=== PATIENT | male | born 1960 | race Caucasian/White ===

== ENCOUNTER → 2016-12-13 13:37 | Outpatient (CLI) | payer OTHER | END | disposition home or self-care (01) | LOC: D.MRI 13:37 | DX: M54.16 Radiculopathy, lumbar region (principal) ==

== ENCOUNTER 2017-02-10 14:11 | Emergency (ER) | payer OTHER ==
[2017-02-10 14:32] LABS: APPEARANCE CLEAR (CLEAR); BILIRUBIN NEGATIVE (NEGATIVE); COLOR YELLOW (YELLOW); GLUCOSE NEGATIVE (NEGATIVE); KETONE NEGATIVE (NEGATIVE); NITRITE NEGATIVE (NEGATIVE); PROTEIN NEGATIVE (NEGATIVE); UROBILINOGEN NORMAL (NORMAL)
== END 2017-02-10 15:41 | disposition home or self-care (01) ==
LOC: D.ER 14:11
PROVIDERS: Emergency Medicine
DX: N32.81 Overactive bladder (principal); N40.0 Benign prostatic hyperplasia without lower urinary tract symptoms; I10 Essential (primary) hypertension

== ENCOUNTER 2017-02-15 23:36 | Emergency (ER) | payer OTHER ==
[2017-02-16 00:23] LABS: APPEARANCE HAZY (CLEAR); BILIRUBIN NEGATIVE (NEGATIVE); COLOR YELLOW (YELLOW); GLUCOSE NEGATIVE (NEGATIVE); KETONE NEGATIVE (NEGATIVE); NITRITE NEGATIVE (NEGATIVE); PROTEIN NEGATIVE (NEGATIVE); SPECIFIC GRAVITY 1.015 (1.005-1.020); UROBILINOGEN NORMAL (NORMAL)
== END 2017-02-16 02:02 | disposition home or self-care (01) ==
LOC: D.ER 23:36
PROVIDERS: Emergency Medicine
DX: N41.9 Inflammatory disease of prostate, unspecified (principal); N39.0 Urinary tract infection, site not specified; F17.200 Nicotine dependence, unspecified, uncomplicated

== ENCOUNTER 2018-02-11 11:54 | Emergency (ER) | payer OTHER ==
[~2018-02-11] VITALS: Ht 172.7 cm; Wt 106.8 kg
[2018-02-11 11:56] VITALS: BP 157/107; Ht 172.7 cm; Wt 106.8 kg
[2018-02-11] MEDS ORDERED: COZAAR25 MG PO (11:57)
[2018-02-11 12:26] LABS: BASOPHILS 0.2 % (0-2); EOSINOPHILS 1.3 % (0-7); HEMATOCRIT 51.7 % (42.0-54.0); IMMATURE GRANULOCYTES 0.3 % (0-5); LYMPHOCYTES 20.4 % (15-50); MCH 30.7 pg (26.0-34.0); MCHC 34.8 g/dL (31.0-37.0); MCV 88.2 fL (80.0-100.0); MEAN PLATELET VOLUME 10.8 fL (7.4-10.4); MONOCYTES 9.3 % (2-11); NEUTROPHILS 68.5 % (40-80); PLATELET COUNT 249 10x3/uL (130-400); RBC 5.86 10x6/uL (4.20-6.10); RDW 15.2 % (11.5-14.5); WBC 15.8 10x3/uL (4.8-10.8)
[2018-02-11 12:36] LABS: APPEARANCE CLEAR (CLEAR); COLOR YELLOW (YELLOW)
[2018-02-11 12:37] LABS: BILIRUBIN NEGATIVE (NEGATIVE); GLUCOSE NEGATIVE (NEGATIVE); KETONE NEGATIVE (NEGATIVE); NITRITE NEGATIVE (NEGATIVE); PROTEIN NEGATIVE (NEGATIVE); UROBILINOGEN NORMAL (NORMAL)
[2018-02-11 12:44] LABS: ALBUMIN 3.6 g/dL (3.4-5.0); ANION GAP 12.3 mmol/L (8-16); BILIRUBIN - TOTAL 0.32 mg/dL (0.2-1.3); CALCIUM 8.9 mg/dL (8.5-10.1); CARBON DIOXIDE 26.4 mmol/L (21.0-32.0); CREATININE - SERUM 1.1 mg/dL (0.6-1.3); POTASSIUM - SERUM 4.7 mmol/L (3.5-5.1); PROTEIN - SERUM 7.3 g/dL (6.4-8.2)
[2018-02-11] MEDS ORDERED: PROTONIX40 MG PO (15:27)
[2018-02-11] MEDS ORDERED: LEVSIN/ANASP0.125 MG PO (15:27)
== END 2018-02-11 16:27 | disposition home or self-care (01) ==
LOC: D.ER 11:54
PROVIDERS: Family Medicine
DX: R10.9 Unspecified abdominal pain (principal); D72.829 Elevated white blood cell count, unspecified; R91.1 Solitary pulmonary nodule; I10 Essential (primary) hypertension

== ENCOUNTER 2018-02-23 12:18 | Emergency (ER) | payer OTHER ==
[~2018-02-23] VITALS: Ht 172.7 cm; Wt 98.2 kg
[~2018-02-23 12:18] MED LIST: COZAAR25 MG PO; LEVSIN/ANASP0.125 MG PO; PROTONIX40 MG PO
[2018-02-23 12:21] VITALS: Ht 172.7 cm; Wt 98.2 kg
[2018-02-23 12:51] LABS: APPEARANCE HAZY (CLEAR); BILIRUBIN NEGATIVE (NEGATIVE); COLOR YELLOW (YELLOW); GLUCOSE NEGATIVE (NEGATIVE); KETONE NEGATIVE (NEGATIVE); NITRITE NEGATIVE (NEGATIVE); PROTEIN 1+ mg/dL (NEGATIVE); UROBILINOGEN NORMAL (NORMAL)
[2018-02-23 12:53] LABS: BASOPHILS 0.2 % (0-2); EOSINOPHILS 1.2 % (0-7); HEMATOCRIT 52.1 % (42.0-54.0); HEMOGLOBIN 18.7 g/dL (13.5-17.5); IMMATURE GRANULOCYTES 0.4 % (0-5); LYMPHOCYTES 22.9 % (15-50); MCH 30.8 pg (26.0-34.0); MCHC 35.9 g/dL (31.0-37.0); MCV 85.7 fL (80.0-100.0); MEAN PLATELET VOLUME 11.1 fL (7.4-10.4); NEUTROPHILS 66.3 % (40-80); PLATELET COUNT 267 10x3/uL (130-400); RBC 6.08 10x6/uL (4.20-6.10); RDW 14.2 % (11.5-14.5); WBC 11.3 10x3/uL (4.8-10.8)
[2018-02-23 12:53] LABS: BACTERIA FEW /hpf (NONE SEEN); EPITHELIAL CELLS 0-5 /hpf (0-5); HYALINE CAST 0-5 /lpf (NONE SEEN); RED CELLS - URINE NONE SEEN /hpf (0-5); WHITE CELLS - URINE 0-5 /hpf (0-5)
[2018-02-23 14:22] LABS: ALBUMIN 3.6 g/dL (3.4-5.0); ANION GAP 14.9 mmol/L (8-16); BILIRUBIN - TOTAL 0.38 mg/dL (0.2-1.3); CALCIUM 8.7 mg/dL (8.5-10.1); CARBON DIOXIDE 24.9 mmol/L (21.0-32.0); CREATININE - SERUM 1.3 mg/dL (0.6-1.3); POTASSIUM - SERUM 3.8 mmol/L (3.5-5.1); PROTEIN - SERUM 7.2 g/dL (6.4-8.2)
[2018-02-23 17:14] VITALS: BP 153/81
== END 2018-02-23 17:16 | disposition home or self-care (01) ==
LOC: D.ER 12:18
PROVIDERS: Family Medicine
DX: R10.32 Left lower quadrant pain (principal); R14.0 Abdominal distension (gaseous); R19.7 Diarrhea, unspecified; I10 Essential (primary) hypertension

== ENCOUNTER 2018-02-25 12:42 | Observation (INO) | payer OTHER ==
[~2018-02-25] VITALS: Ht 172.7 cm; Wt 103.2 kg
--- NOTE | ~2018-02-25 | MORECARE ---
CASE MANAGEMENT DISCHARGE SUMMARY PATIENT: WADE DAVIDSON UNIT: [id number] ADM DATE: 03/02/18 AGE: 57 : 58 SEX: M ROOM/BED: D.1521 AUTHOR: JAVAN FONTANA PHYSICIAN: REFERRING PHYSICIAN: RENEA VILLAGRAN MD DATE OF SERVICE: 03/05/18 Discharge Plan Patient Name: WADE DAVIDSON Facility: [facility]:[place] : 1960 Planned Disposition: Home Anticipated Discharge Date: 03/04/18 Discharge Date: 03/04/2018 Expected LOS: 2 Initial Reviewer: [email or web address] Initial Review Date: 03/05/2018 Generated: 03/05/18 9:12 am Patient Name: WADE DAVIDSON Page [id number] at 0813 All edits/amendments must be made on the electronic document DICTATION DATE: 03/05/18811 CHISEL TRIMMER: ROYA 03/05/18811 RPT#: [id number] DC DATE:03/04/18 STATUS: DIS IN [facility] [address] [place] [address] END OF REPORT
--- NOTE | ~2018-02-25 | OP ---
PATIENT NAME: WADE DAVIDSON MEDICAL RECORD: [id number] :58 LOCATION:D.M2 D.2129 ADMISSION DATE:02/25/18 SURGEON: MOUNA YAÑEZ MD DATE OF OPERATION: 02/28/2018 PROCEDURE: Left heart catheterization, selective coronary angiography, right radial approach. CATHETERS: Radial sheath and Natoma catheter. The procedure was well tolerated. The patient was returned to the toscano. Sheath was removed. TR band was placed. FINDINGS: Left ventriculography in 30-degree ESTRADA view: Normal wall motion and normal systolic function. CORONARY ANATOMY: LEFT MAIN: Left main is free of disease. LAD: Free of disease in the diagonal system. CIRCUMFLEX: Free of disease in the marginal system. RIGHT CORONARY ARTERY: Dominant artery, gives rise to PDA, free of disease. IMPRESSION: Normal LV systolic function. Normal coronary anatomy. TRANSINT:[id number] Voice Confirmation ID: [id number] DOCUMENT ID: [id number] MOUNA YAÑEZ MD at 0802 CC: [id number] DICTATION DATE: 02/28/18 1503 AIR BRAKE OPERATOR: 02/28/18 1719 ADM IN [facility] [address] [place] [address]
--- NOTE | ~2018-02-25 | CN ---
PATIENT NAME:WADE DAVIDSON MEDICAL RECORD: [id number] : 58 LOCATION:D. D.2129 ADMIT DATE: 02/25/18 ACCOUNT: [id number] CONSULTING PHYSICIAN: MOUNA YAÑEZ MD REFERRING PHYSICIAN: RENEA VILLAGRAN MD DATE OF CONSULTATION: 02/28/2018 HISTORY OF PRESENT ILLNESS: A 57-year-old gentleman with a history of cardiac arrhythmias. These have been present for at least a year. He had a noninvasive workup to include echo and regular treadmill stress testing. This was normal at that time with poor exercise tolerance. He has had intermittent chest pain since that time. He had episode of chest pain accompanied by trigeminy. Post colonoscopy, we are asked to see him concerning his cardiovascular status. PAST MEDICAL HISTORY: Includes; 1. History of hypertension. 2. Cardiac arrhythmias, PVCs. 3. Gastroesophageal reflux disease. ALLERGIES: None known. MEDICATIONS: Include Protonix 40 every day, Wellbutrin 150 b.i.d., losartan 25 every day. SOCIAL HISTORY: Smokes a pack a day. Nondrinker. Does seem to exercise intermittently. REVIEW OF SYSTEMS: The patient reports easy bruising but reports no swollen glands. The patient reports no fever, no night sweats, no significant weight gain, no significant weight loss. No significant exercise tolerance. The patient reports no dry eyes, no irritation, no vision change. Patient reports no difficulty hearing and no ear pain. Patient reports no frequent nose bleeds or nose and sinus problems. Patient reports on arm pain on exertion. No shortness of breath while lying down. No history of heart murmur. Patient reports no cough, no wheezing or coughing up blood. Patient reports no abdominal pain, no vomiting. Normal appetite. No diarrhea and not vomiting blood. No nausea and no constipation. Patient reports no incontinence. No difficulty urinating. No hematuria. No increased frequency. Patient reports no muscle aches. No weakness, no arthralgias, no back pain. No swelling of the extremities. Patient reports no abnormal mole, no jaundice, no rashes. Reports no loss of consciousness. No weakness and no numbness. No seizures, dizziness, or headaches. The patient reports no depression, no sleep disturbance, feeling safe in a relationship and no alcohol abuse. Patient reports on fatigue. Reports no runny nose or sinus pressure. No itching, no hives, and no frequent sneezing. PHYSICAL EXAMINATION: GENERAL: Pleasant gentleman, in no acute distress. VITAL SIGNS: Blood pressure 139/88, pulse 69 and regular. HEENT: Normocephalic, atraumatic. NECK: No JVD or bruit. HEART: Regular. Occasional extrasystole in irregular pattern. LUNGS: Good air excursion. ABDOMEN: Soft, nontender. EXTREMITIES: Pulses 2+ with no edema. CONSULT REPORT [id number] WADE DAVIDSON DIAGNOSTIC DATA: ECG, trigeminy and LVH. IMPRESSION: Continued chest pain despite negative workup. I feel diagnostic angiography and intervention at this time. The patient is to be scheduled for this afternoon. TRANSINT:[id number] Voice Confirmation ID: [id number] DOCUMENT ID: [id number] MOUNA YAÑEZ MD at 0802 CC: [id number] DICTATION DATE: 02/28/18823 MOBILE GAME ENGINEER: 02/28/18 0856 ADM IN [facility] [id number] [place] [address]
--- NOTE | ~2018-02-25 | HEMODYNAMI ---
PATIENT:WADE DAVIDSON MEDICAL RECORD: [id number] : 58 [facility] D.2129 [id number] ADMISSION DATE: 02/25/18 Generatedon:02/28/201815:04 Patient name: WADE DAVIDSON Patient #: [id number] SSN : : 1960 Date of study: 02/28/2018 Page: Of Hemodynamic Procedure Report Patient Data Patient Demographics Procedure consent was obtained First Name: WADE Gender: Male Last Name: LETY : 1960 Middle Initial: E Age: 57 year(s) Patient #: [id number] Race: Unknown Additional ID: [id number] Contact details [address]: [address] [place] [address] State: [place] City: [place] Zip code: [address] Past Medical History Allergies: No known allergies Admission Admission Data Admission Date: 02/25/2018 Admission Time: 12:42 Admit Source: Other Room #: D.2129 Lab Results Lab Result Date: 02/28/2018 Lab Result Time: 0:00 Biochemistry Name Units Result Min Max BUN mg/dl 8 --(*---)-- 7 18 Creatinine mg/dl 1.3 --(---*)-- 0.6 1.3 CBC Name Units Result Min Max Hemoglobin g/dl 14.8 --(-*--)-- 13.5 17.5 Procedure Procedure Types Cath Procedure Diagnostic Procedure LHC LHC w/Coronaries Sedation Charges Moderate Sedation up to 15 minutes Procedure Description Procedure Date Procedure Date: 02/28/2018 Procedure Start Time: 14:51 Procedure End Time: 15:01 Procedure Staff Name Function Rafi Franco MD Performing Physician Miri Kamara RT Monitor Herber Osorio RT Scrub Carline Gómez RN Nurse Kimberly Ram RN Nurse Anderson Foss RT Computer Numerical Control Programmer Procedure Data Cath Procedure Fluoroscopy Diagnostic fluoroscopy Total fluoroscopy Time: 3.5 time: 3.5 min min Diagnostic fluoroscopy Total fluoroscopy dose: 433 dose: 433 mGy mGy Contrast Material Contrast Material Type Amount (ml) Isovue 300 10 Entry Location Entry Primary Successful Side Size Upsize Upsize Entry Closure Villeda ccessful Closure Location (Fr) 1 (Fr) 2 (Fr) Remarks Device Remarks Radial Right 6 Fr Mechanical artery Short Compression Estimated blood loss: 5 ml Diagnostic catheters Device Type Used For End Catheter Placement DIAGNOSTIC [place] 110cm 5 Procedure Fr catheter ([id number]) Procedure Complications No complications Procedure Medications Medication Administration Route Dosage 0.9% NaCl I.V. 100 ml/hr Oxygen etCO2 Nasal cannula 2 l/min Lidocaine 2% added to field 20 Heparin Flush Bag added to field 2 bags (1000units/500ml NS) Radial Cocktail added to field 1 syringe (Verapomil 2mg/Nitro 400mcg/Heparin 1500units) Versed I.V. 2 mg Fentanyl I.V. 100 mcg Versed I.V. 2 mg Fentanyl I.V. 100 mcg Versed I.V. 1 mg Fentanyl I.V. 50 mcg Hemodynamics Rest HGB: 14.8 (g/dl) Heart Rate: 78 (bpm) Pressure Samples Time Site Value (mmHg) Purpose Heart Use Rate(bpm) 14:55 LV 95/26,48 Snapshot 95 Gradients Valve Time Site Site Mean SEP/DFP Peak To Heart Use 1 2 (mmHg) (sec/min) Peak Rate (mmHg) (bpm) Aortic 14:55 LV AO 62 Snapshots Pre Cath Intra NCS Post Cath Vital Signs Time Heart Resp SPO2 etCO2 NIBP (mmHg) Rhythm Pain Sedation Rate (ipm) (%) (mmHg) Status Level (bpm) 14:34:56 79 15 98 40 168/99(123) NSR 0 (11) 10(A) , No pain 14:39:12 76 17 98 37.6 147/89(118) NSR 0 (11) 10(A) , No pain 14:43:21 81 15 97 35.2 130/95(115) NSR 0 (11) 10(A) , No pain 14:47:33 63 13 95 37 131/87(106) NSR 0 (11) 10(A) , No pain 14:51:43 74 15 97 36.6 134/99(114) NSR 0 (11) 9(A) , No pain 14:58:06 78 15 99 37.2 112/54(69) NSR 0 (11) 10(A) , No pain Medications Time Medication Route Dose Verified Delivered Reason Notes E ffectiveness by by 14:27:40 0.9% NaCl I.V. 100 Rafi Kimberly used for ml/hr Salvador Yo procedure MD CHAMBERS 14:27:48 Oxygen etCO2 2 l/min Rafi Kimberly used for Nasal [facility] procedure cannula MD CHAMBERS 14:27:54 Lidocaine 2% added 20ml Rafi Rafi for local to vial [facility] anesthetic field MD BATISTA 14:28:03 Heparin Flush added 2 bags Rafi Rafi used for Bag to [facility] procedure (1000units/500ml field MD [place]IST[place] NS) 14:37:05 Radial Cocktail added 1 Rafi Rafi used for (Verapomil to syringe [facility] procedure 2mg/Nitro field MD [place]IST[place] 400mcg/Heparin 1500units) 14:43:13 Versed I.V. 2 mg Rafi Buffie for Titus Dalia RN sedation 14:43:21 Fentanyl I.V. 100 mcg Rafi Buffie for Titus Gómez RN sedation 14:52:51 Versed I.V. 2 mg Rafi Buffie for [facility] RN sedation 14:52:56 Fentanyl I.V. 100 mcg Rafi Buffie for [facility] RN sedation 14:56:04 Versed I.V. 1 mg Rafi Buffie for [facility] RN sedation 14:56:10 Fentanyl I.V. 50 mcg Rafi Buffie for [facility] RN sedation Procedure Log Time Note 14:10:08 Anderson NINO(R) sent for patient. Start room use. 14:22:30 Informed consent obtained and on chart 14:22:33 Admit Source: Other 14:22:50 Diagnostic Cath status Elective 14:23:24 Time tracking: Regular hours (M-F 7:00 - 5:00) 14::27 Plan of Care:Hemodynamics will remain stable., Cardiac rhythm will remain stable., Comfort level will be maintained., Respiratory function will remain adequate., Patient/ family verbilizes understanding of procedure., Procedure tolerated without complication., Recovers from procedure without complications.. 14:27:40 0.9% NaCl 100 ml/hr I.V. was administered by Kimberly Ram RN; used for procedure; 14:27:48 Oxygen 2 l/min etCO2 Nasal cannula was administered by Kimberly Ram RN; used for procedure; 14:27:54 Lidocaine 2% 20ml vial added to field was administered by Rafi Franco MD; for local anesthetic; 14:28:03 Heparin Flush Bag (1000units/500ml NS) 2 bags added to field was administered by Rafi Franco MD; used for procedure; 14:28:11 Patient received from Med II to CCL 1 Alert and oriented. Tansferred to table in Supine position. 14:28:12 Warm blankets applied, and richard hugger turned on for patient comfort. 14:28:13 Correct patient and procedure confirmed by team. 14:28:13 ECG and BP/O2 sat monitors applied to patient. 14:28:25 H&P Date Dictated: 02/25/2018 Within 30 days and on chart.. 14:28:30 Pre-procedure instructions explained to patient. 14:28:30 Pre-op teaching completed and patient verbalized understanding. 14:28:32 Family in patients room. 14:28:34 Patient NPO since Breakfast. 14:33:47 Vital chart was started 14:37:05 Radial Cocktail (Verapomil 2mg/Nitro 400mcg/Heparin 1500units) 1 syringe added to field was administered by Rafi Franco MD; used for procedure; 14:41:06 Baseline sample Acquired. 14:41:11 Rhythm: sinus rhythm 14:41:12 Full Disclosure recording started 14:41:20 Patient allergic to No known allergies 14:41:23 Is patient on blood thinner?No 14:41:24 Patient diabetic? No. 14:41:26 Previous problem with sedation/anesthesia? No ? 14:41:27 Snore? Yes 14:41:28 Sleep apnea? No 14:41:30 Deviated septum? No 14:41:30 Opens mouth fully? Yes 14:41:31 Sticks out tongue? Yes 14:41:33 Airway obstruction? No ? 14:41:36 Dentures? No ? 14:41:41 Modified Anupam's test Ulnar < 7 seconds 14:41:45 Patient pain scale 0/10 ?. 14:42:02 IV patent on arrival in left forearm with 0.9% NaCl at [facility]. 14:42:39 Lab Result : BUN 8 mg/dl 14:42:40 Lab Result : Hemoglobin 14.8 g/dl 14:42:40 Lab Result : Creatinine 1.3 mg/dl 14:42:43 Lab results completed and on chart. 14:42:46 Right Radial & Right Groin area was prepped with chlora-prep and draped in sterile fashion 14:42:47 Alarms reviewed by R. N. 14:42:47 Sharps counted by scrub and verified by R.N. 14:42:49 --------ALL STOP TIME OUT------ 14:42:49 Final Timeout: patient, procedure, and site verified with staff and physician. All members of the team are in agreement. 14:42:51 Right Radial & Right Groin site verified by team. 14:42:53 Physical assessment completed. ASA score P 2 - A patient with mild systemic disease as per Rafi Franco MD. 14:42:56 Sedation plan: IV Moderate Sedation Medication:Versed, Fentanyl 14:43:13 Versed 2 mg I.V. was administered by Carline Gómez RN; for sedation; 14:43:21 Fentanyl 100 mcg I.V. was administered by Carline Gómez RN; for sedation; 14:45:47 Use device set Radial Dx or PCI 14:45:49 ACIST Syringe (42008) opened to sterile field. 14:45:50 Bag Decanter (2002S) opened to sterile field. 14:45:51 ACIST Hand Control (38645) opened to sterile field. 14:45:51 ACIST Manifold (59161) opened to sterile field. 14:45:54 Tegaderm 4 x 4 (1626W) opened to sterile field. 14:45:55 Medline Cath Pack ([id number]) opened to sterile field. 14:45:55 DIAGNOSTIC WIRE .035 260cm J wire (922173) opened to sterile field. 14:45:56 MBrace Wrist Support ([id number]) opened to sterile field. 14:45:57 SHEATH 6Fr Prelude Radial ([id number]) opened to sterile field. 14:46:17 Zero performed for pressure channel P1 14:51:16 Procedure started. 14:51:24 Local anesthetic to right radial artery with Lidocaine 2% by Rafi Franco MD.INITIAL ACCESS ONLY 14:52:18 A 6 Fr Short sheath was inserted into the Right Radial artery 14:52:40 A DIAGNOSTIC [place] 110cm 5 Fr catheter (247563) was advanced over the wire and used for Procedure. 14:52:51 Versed 2 mg I.V. was administered by Carline Gómez RN; for sedation; 14:52:56 Fentanyl 100 mcg I.V. was administered by Carline Gómez RN; for sedation; 14:54:08 LV gram done using ESTRADA 14:54:11 Injector settings: Ml/sec: 7, Volume: 15, 14:55:03 LV hemodynamics recorded. 14:55:27 EF : 55 % 14:56:04 Versed 1 mg I.V. was administered by Carline Gómez RN; for sedation; 14:56:10 Fentanyl 50 mcg I.V. was administered by Carline Gómez RN; for sedation; 14:57:12 RCA angiography performed. 14:58:37 LCA angiography performed. 14:58:39 Catheter removed. 14:58:40 TR BAND Standard ([id number]) opened to sterile field. 14:58:48 Procedure ended.(Physican Out) 14:59:33 Sheath removed intact; hemostasis achieved with Mechanical Compression to the Right Radial artery. 14:59:39 Fluoroscopy time 03.50 minutes. 14:59:49 Fluoroscopy dose: 433 mGy 14:59:49 Flurop Dose total: 433 14:59:52 Contrast amount:Isovue 300 10ml. 14:59:55 TR band inflated with 10cc of air. 14:59:59 Post procedure rhythm: sinus rhythm 15:00:02 Estimated blood loss: 5 ml 15:00:03 Post procedure instruction explained to patient.Patient verbalizes understanding. 15:00:04 Patient needs reinforcement of post procedure teaching. 15:00:20 Procedure type changed to Cath procedure, Diagnostic procedure, LHC, LHC w/Coronaries, Sedation Charges, Moderate Sedation up to 15 minutes 15:00:51 Procedure and supply charges have been captured, reviewed, submitted and are correct. 15:00:53 Procedure Complication : No complications 15:00:55 Vital chart was stopped 15:00:56 See physician's report for complete and final results. 15:00:57 Report given to PCU. 15:01:00 Patient transfered to PCU with Wheelchair. 15:01:05 Procedure ended. 15:01:05 Full Disclosure recording stopped 15:01:08 End room use (Document Last) Device Usage Item Name Manufacture Quantity Catalog Number Hospital Part Current M inimal Lot# / Charge Number Stock Stock Serial# Code ACIST Syringe Acist 1 10553 802446 066606 502533 2 0 (51919) [employer] Bag Decanter Microtek 1 2001S 342244 79870 770143 5 (2001S) Medical Inc. ACIST Hand Acist 1 02187 639665 294558 968348 5 Control (60698) [employer] Systems Inc ACIST Manifold Acist 1 66558 714792 107630 580118 5 (39101) Medical Systems Inc Tegaderm 4 x 4 3M 1 1626W 348569 030743 839243 5 (1626W) Medline Cath Medline 1 [id number] 124934 80065 952499 5 Pack ([id number]) DIAGNOSTIC WIRE [place] 1 086458 962607 440102 321850 3 0 .035 260cm J wire (472880) MBrace Wrist Advanced 1 140-0250-00 447716 67765 454106 5 Support Vascular ([id number]) Dynamics SHEATH 6Fr Merit 1 [id number] 526700 041305 676364 5 Prelude Radial Medical ([id number]) DIAGNOSTIC Terumo 1 40-4497 675577 446469 315886 5 [place] 110cm 5 Fr catheter (828284) TR BAND Terumo 1 [id number] 882208 831622 370893 4 0 Standard ([id number]) Signature Audit [place] Stage Time Signature Unsigned Intra-Procedure 02/28/2018 Miri Kamara 3:04:27 PM RT(R) Signatures Monitor : Miri Kamara Signature : RT Date : Time : [place] [id number] [place] [address]
[2018-02-25 13:44] LABS: BASOPHILS 0.2 % (0-2); EOSINOPHILS 1.5 % (0-7); HEMATOCRIT 47.9 % (42.0-54.0); IMMATURE GRANULOCYTES 0.2 % (0-5); LYMPHOCYTES 24.4 % (15-50); MCH 30.9 pg (26.0-34.0); MCHC 35.5 g/dL (31.0-37.0); MCV 86.9 fL (80.0-100.0); MEAN PLATELET VOLUME 10.6 fL (7.4-10.4); MONOCYTES 9.9 % (2-11); NEUTROPHILS 63.8 % (40-80); PLATELET COUNT 247 10x3/uL (130-400); RBC 5.51 10x6/uL (4.20-6.10); RDW 14.1 % (11.5-14.5); WBC 9.8 10x3/uL (4.8-10.8)
[2018-02-25 13:59] LABS: ALBUMIN 3.7 g/dL (3.4-5.0); ANION GAP 14.2 mmol/L (8-16); BILIRUBIN - TOTAL 0.24 mg/dL (0.2-1.3); CALCIUM 8.8 mg/dL (8.5-10.1); CARBON DIOXIDE 25.8 mmol/L (21.0-32.0); CREATININE - SERUM 1.2 mg/dL (0.6-1.3); PROTEIN - SERUM 7.2 g/dL (6.4-8.2)
[2018-02-25] MEDS ORDERED: BUPROPION XL150 MG PO (13:59)
[2018-02-25 14:39] VITALS: BP 139/78; BMI 33.5
[2018-02-25 14:42] VITALS: BP 139/79
[2018-02-25 21:22] VITALS: BP 134/83
[2018-02-26 01:19] VITALS: BP 112/57
[2018-02-26 05:00] LABS: BASOPHILS 0.3 % (0-2); EOSINOPHILS 2.8 % (0-7); HEMATOCRIT 44.9 % (42.0-54.0); HEMOGLOBIN 15.3 g/dL (13.5-17.5); IMMATURE GRANULOCYTES 0.1 % (0-5); LYMPHOCYTES 35.6 % (15-50); MCH 30.1 pg (26.0-34.0); MCHC 34.1 g/dL (31.0-37.0); MCV 88.2 fL (80.0-100.0); MEAN PLATELET VOLUME 10.8 fL (7.4-10.4); MONOCYTES 10.2 % (2-11); PLATELET COUNT 209 10x3/uL (130-400); RBC 5.09 10x6/uL (4.20-6.10); RDW 14.2 % (11.5-14.5)
[2018-02-26 05:03] LABS: WBC 7.1 10x3/uL (4.8-10.8)
[2018-02-26 05:12] LABS: ALBUMIN 3.1 g/dL (3.4-5.0); ANION GAP 12.9 mmol/L (8-16); BILIRUBIN - TOTAL 0.32 mg/dL (0.2-1.3); CALCIUM 8.3 mg/dL (8.5-10.1); CARBON DIOXIDE 25.1 mmol/L (21.0-32.0); CREATININE - SERUM 1.1 mg/dL (0.6-1.3); PHOSPHOROUS 2.7 mg/dL (2.5-4.9); PROTEIN - SERUM 6.2 g/dL (6.4-8.2)
[2018-02-26 06:11] VITALS: BP 118/76
[2018-02-26 07:56] VITALS: BP 129/79
[2018-02-26 11:03] VITALS: BP 131/87
[2018-02-26 14:10] VITALS: BMI 33.4
[2018-02-26 15:29] VITALS: BP 144/91
[2018-02-26 20:00] VITALS: BP 151/95
[2018-02-27 00:46] VITALS: BP 142/91
[2018-02-27 04:00] VITALS: BP 130/84
[2018-02-27 06:00] LABS: BASOPHILS 0.3 % (0-2); EOSINOPHILS 2.9 % (0-7); HEMATOCRIT 45.3 % (42.0-54.0); HEMOGLOBIN 15.4 g/dL (13.5-17.5); IMMATURE GRANULOCYTES 0.2 % (0-5); LYMPHOCYTES 34.8 % (15-50); MCH 29.9 pg (26.0-34.0); MEAN PLATELET VOLUME 10.8 fL (7.4-10.4); MONOCYTES 9.6 % (2-11); NEUTROPHILS 52.2 % (40-80); PLATELET COUNT 207 10x3/uL (130-400); RBC 5.15 10x6/uL (4.20-6.10); RDW 14.1 % (11.5-14.5); WBC 6.2 10x3/uL (4.8-10.8)
[2018-02-27 06:26] LABS: ALBUMIN 3.2 g/dL (3.4-5.0); ANION GAP 10.5 mmol/L (8-16); BILIRUBIN - TOTAL 0.36 mg/dL (0.2-1.3); CALCIUM 8.4 mg/dL (8.5-10.1); CARBON DIOXIDE 28.3 mmol/L (21.0-32.0); CREATININE - SERUM 1.1 mg/dL (0.6-1.3); MAGNESIUM - SERUM 1.3 mg/dL (1.8-2.4); PHOSPHOROUS 3.1 mg/dL (2.5-4.9); POTASSIUM - SERUM 3.8 mmol/L (3.5-5.1); PROTEIN - SERUM 6.2 g/dL (6.4-8.2)
[2018-02-27 10:46] VITALS: BP 138/86
[2018-02-27 14:49] VITALS: BP 140/78
[2018-02-27 15:53] LABS: CREATINE KINASE 60 UL (21-232)
[2018-02-27 16:16] LABS: CKMB 1.2 U/L (0.0-3.6); TROPONIN-I < 0.017 ng/mL (0.000-0.060)
[2018-02-27 20:00] VITALS: BP 150/88
[2018-02-27 22:45] LABS: CKMB 0.9 U/L (0.0-3.6); CREATINE KINASE 67 UL (21-232); TROPONIN-I < 0.017 ng/mL (0.000-0.060)
[2018-02-28] VITALS (8 sets, daily range): BP systolic 108–146; BP diastolic 65–92; Ht 172.7 cm; Wt 103.2 kg
[2018-02-28 02:55] LABS: BASOPHILS 0.3 % (0-2); EOSINOPHILS 2.5 % (0-7); HEMATOCRIT 43.3 % (42.0-54.0); HEMOGLOBIN 14.8 g/dL (13.5-17.5); IMMATURE GRANULOCYTES 0.3 % (0-5); LYMPHOCYTES 32.5 % (15-50); MCH 30.3 pg (26.0-34.0); MCHC 34.2 g/dL (31.0-37.0); MCV 88.5 fL (80.0-100.0); MEAN PLATELET VOLUME 10.5 fL (7.4-10.4); MONOCYTES 10.3 % (2-11); NEUTROPHILS 54.1 % (40-80); PLATELET COUNT 196 10x3/uL (130-400); RBC 4.89 10x6/uL (4.20-6.10); RDW 14.2 % (11.5-14.5)
[2018-02-28 02:56] LABS: WBC 7.9 10x3/uL (4.8-10.8)
[2018-02-28 03:21] LABS: ALKALINE PHOSPHATASE 69 U/L (46-116); ALT (SGPT) 20 U/L (10-68); BILIRUBIN - TOTAL 0.17 mg/dL (0.2-1.3); CALC OSMOLALITY 280 mosm/kg (275-300); CALCIUM 8.3 mg/dL (8.5-10.1); CARBON DIOXIDE 29.8 mmol/L (21.0-32.0); CHLORIDE - SERUM 108 mmol/L (98-107); CKMB 1.1 U/L (0.0-3.6); CREATINE KINASE 57 UL (21-232); CREATININE - SERUM 1.3 mg/dL (0.6-1.3); GLUCOSE 106 mg/dL (74-106); MAGNESIUM - SERUM 1.3 mg/dL (1.8-2.4); PHOSPHOROUS 3.8 mg/dL (2.5-4.9); POTASSIUM - SERUM 4.2 mmol/L (3.5-5.1); PROTEIN - SERUM 5.9 g/dL (6.4-8.2); SODIUM 142 mmol/L (136-145); TROPONIN-I < 0.017 ng/mL (0.000-0.060); UREA NITROGEN 8 mg/dL (7-18); eGFR NON AFRICAN AMERICAN 60 mL/min (90-120)
[2018-03-01] VITALS (9 sets, daily range): BP systolic 130–150; BP diastolic 71–93
[2018-03-01 06:48] LABS: ANION GAP 14.1 mmol/L (8-16); BILIRUBIN - TOTAL 0.21 mg/dL (0.2-1.3); CALCIUM 8.3 mg/dL (8.5-10.1); CARBON DIOXIDE 24.8 mmol/L (21.0-32.0); CREATININE - SERUM 1.1 mg/dL (0.6-1.3); MAGNESIUM - SERUM 1.3 mg/dL (1.8-2.4); PHOSPHOROUS 3.3 mg/dL (2.5-4.9); POTASSIUM - SERUM 3.9 mmol/L (3.5-5.1); PROTEIN - SERUM 5.8 g/dL (6.4-8.2)
[2018-03-01 08:07] LABS: BASOPHILS 0.4 % (0-2); EOSINOPHILS 2.9 % (0-7); HEMATOCRIT 44.3 % (42.0-54.0); HEMOGLOBIN 15.2 g/dL (13.5-17.5); IMMATURE GRANULOCYTES 0.2 % (0-5); LYMPHOCYTES 22.1 % (15-50); MCH 30.3 pg (26.0-34.0); MCHC 34.3 g/dL (31.0-37.0); MCV 88.4 fL (80.0-100.0); MEAN PLATELET VOLUME 11.2 fL (7.4-10.4); MONOCYTES 8.4 % (2-11); PLATELET COUNT 194 10x3/uL (130-400); RBC 5.01 10x6/uL (4.20-6.10); RDW 14.5 % (11.5-14.5); WBC 8.4 10x3/uL (4.8-10.8)
[2018-03-02] VITALS: BP 139/86
[2018-03-02 04:59] LABS: BASOPHILS 0.2 % (0-2); EOSINOPHILS 3.1 % (0-7); HEMATOCRIT 42.1 % (42.0-54.0); HEMOGLOBIN 14.5 g/dL (13.5-17.5); IMMATURE GRANULOCYTES 0.2 % (0-5); LYMPHOCYTES 32.9 % (15-50); MCH 30.3 pg (26.0-34.0); MCHC 34.4 g/dL (31.0-37.0); MCV 87.9 fL (80.0-100.0); MEAN PLATELET VOLUME 10.5 fL (7.4-10.4); MONOCYTES 9.9 % (2-11); NEUTROPHILS 53.7 % (40-80); PLATELET COUNT 181 10x3/uL (130-400); RBC 4.79 10x6/uL (4.20-6.10); RDW 14.2 % (11.5-14.5); WBC 8.3 10x3/uL (4.8-10.8)
[2018-03-02 05:22] LABS: ALBUMIN 3.1 g/dL (3.4-5.0); ANION GAP 11.6 mmol/L (8-16); BILIRUBIN - TOTAL 0.17 mg/dL (0.2-1.3); CALCIUM 8.2 mg/dL (8.5-10.1); CARBON DIOXIDE 28.2 mmol/L (21.0-32.0); CREATININE - SERUM 1.1 mg/dL (0.6-1.3); MAGNESIUM - SERUM 1.2 mg/dL (1.8-2.4); PHOSPHOROUS 3.7 mg/dL (2.5-4.9); POTASSIUM - SERUM 3.8 mmol/L (3.5-5.1); PROTEIN - SERUM 5.8 g/dL (6.4-8.2)
[2018-03-02 06:04] VITALS: BP 138/80
[2018-03-02 08:00] VITALS: BP 125/71
[2018-03-02 11:26] VITALS: BP 128/76
[2018-03-02 16:02] VITALS: BP 107/66
[2018-03-02 20:12] VITALS: BP 135/83
[2018-03-03 00:20] VITALS: BP 131/80
[2018-03-03 04:49] VITALS: BP 122/82
[2018-03-03 08:52] VITALS: BP 144/82
[2018-03-03 15:44] VITALS: BP 150/85
[2018-03-03 21:59] VITALS: BP 148/92
[2018-03-04 02:24] VITALS: BP 143/80
[2018-03-04 03:06] LABS: OVA + PARASITE EXAM Final report (())
[2018-03-04 05:38] LABS: BASOPHILS 0.5 % (0-2); EOSINOPHILS 3.8 % (0-7); HEMATOCRIT 42.9 % (42.0-54.0); HEMOGLOBIN 14.7 g/dL (13.5-17.5); IMMATURE GRANULOCYTES 0.1 % (0-5); LYMPHOCYTES 34.4 % (15-50); MCH 30.1 pg (26.0-34.0); MCHC 34.3 g/dL (31.0-37.0); MCV 87.7 fL (80.0-100.0); MEAN PLATELET VOLUME 10.6 fL (7.4-10.4); MONOCYTES 10.2 % (2-11); PLATELET COUNT 172 10x3/uL (130-400); RBC 4.89 10x6/uL (4.20-6.10); RDW 14.1 % (11.5-14.5); WBC 7.8 10x3/uL (4.8-10.8)
[2018-03-04 05:45] VITALS: BP 133/79
[2018-03-04 05:47] LABS: ALBUMIN 3.1 g/dL (3.4-5.0); ANION GAP 12.1 mmol/L (8-16); BILIRUBIN - TOTAL 0.16 mg/dL (0.2-1.3); CALCIUM 8.3 mg/dL (8.5-10.1); CARBON DIOXIDE 28.9 mmol/L (21.0-32.0); CREATININE - SERUM 1.1 mg/dL (0.6-1.3); MAGNESIUM - SERUM 1.3 mg/dL (1.8-2.4); PROTEIN - SERUM 5.9 g/dL (6.4-8.2)
[2018-03-04 09:05] VITALS: BP 113/71
[2018-03-04 11:08] VITALS: BP 134/79
[2018-03-04 16:16] VITALS: BP 113/81
[2018-03-04] MEDS ORDERED: LEVAQUIN750 MG PO (16:46)
[2018-03-04] MEDS ORDERED: PROTONIX40 MG PO (16:47)
[2018-03-04] MEDS ORDERED: CARAFATE1 G/10 ML PO (16:47)
== END 2018-03-04 18:16 | disposition home or self-care (01) ==
LOC: OBSVTIME → D.M2 12:42 → UNDOADMOB 12:42 → OBSVTIME 12:56 → EDSTATUS 02-27 07:00 → D.M2 03-02 15:18
PROVIDERS: Emergency Medicine; Family Medicine; Internal Medicine Gastroenterology
DX: K21.9 Gastro-esophageal reflux disease without esophagitis (principal); F17.213 Nicotine dependence, cigarettes, with withdrawal; K57.92 Diverticulitis of intestine, part unspecified, without perforation or abscess without bleeding; K44.9 Diaphragmatic hernia without obstruction or gangrene; K22.70 Barrett's esophagus without dysplasia; K25.9 Gastric ulcer, unspecified as acute or chronic, without hemorrhage or perforation; K29.70 Gastritis, unspecified, without bleeding; K59.00 Constipation, unspecified; R63.4 Abnormal weight loss; I10 Essential (primary) hypertension; I49.3 Ventricular premature depolarization; R00.8 Other abnormalities of heart beat; K63.5 Polyp of colon; R07.9 Chest pain, unspecified; Z68.33 Body mass index [BMI] 33.0-33.9, adult

== ENCOUNTER 2018-08-14 05:15 | Observation (INO) | payer OTHER ==
[~2018-08-14] VITALS: Ht 172.7 cm; Wt 104.5 kg
[~2018-08-14 05:15] MED LIST changes: +BUPROPION XL150 MG PO; +CARAFATE1 G/10 ML PO; +LEVAQUIN750 MG PO
[2018-08-14 05:43] VITALS: BP 155/90
[2018-08-14 05:48] LABS: BASOPHILS 0.2 % (0-2); EOSINOPHILS 1.8 % (0-7); HEMATOCRIT 47.1 % (42.0-54.0); HEMOGLOBIN 16.7 g/dL (13.5-17.5); IMMATURE GRANULOCYTES 0.4 % (0-5); MCH 32.2 pg (26.0-34.0); MCHC 35.5 g/dL (31.0-37.0); MCV 90.8 fL (80.0-100.0); MEAN PLATELET VOLUME 10.7 fL (7.4-10.4); MONOCYTES 6.4 % (2-11); NEUTROPHILS 74.2 % (40-80); RBC 5.19 10x6/uL (4.20-6.10); RDW 13.2 % (11.5-14.5)
[2018-08-14 05:58] LABS: APPEARANCE CLEAR (CLEAR); COLOR YELLOW (YELLOW)
[2018-08-14 05:59] LABS: BILIRUBIN NEGATIVE (NEGATIVE); GLUCOSE 50 mg/dL (NEGATIVE); KETONE NEGATIVE (NEGATIVE); NITRITE NEGATIVE (NEGATIVE); PLATELET COUNT 211 10x3/uL (130-400); PROTEIN NEGATIVE (NEGATIVE); UROBILINOGEN NORMAL (NORMAL)
[2018-08-14 06:06] LABS: ALBUMIN 3.5 g/dL (3.4-5.0); ALKALINE PHOSPHATASE 127 U/L (46-116); ALT (SGPT) 32 U/L (10-68); CALC OSMOLALITY 282 mosm/kg (275-300); CALCIUM 8.8 mg/dL (8.5-10.1); CARBON DIOXIDE 24.5 mmol/L (21.0-32.0); CHLORIDE - SERUM 102 mmol/L (98-107); CREATININE - SERUM 1.2 mg/dL (0.6-1.3); POTASSIUM - SERUM 3.6 mmol/L (3.5-5.1); PROTEIN - SERUM 7.5 g/dL (6.4-8.2); SODIUM 139 mmol/L (136-145); UREA NITROGEN 9 mg/dL (7-18); eGFR NON AFRICAN AMERICAN 66 mL/min (90-120)
[2018-08-14 06:07] LABS: GLUCOSE 200 mg/dL (74-106)
[2018-08-14 06:08] LABS: AMYLASE - SERUM 40 U/L (25-115); LIPASE 119 U/L (73-393); TROPONIN-I < 0.017 ng/mL (0.000-0.060)
--- NOTE | 2018-08-14 06:29 | NUR ---
PATIENT RESTING QUIETLY. RADIOLOGY CALLED FOR CT.
--- NOTE | 2018-08-14 06:52 | NUR ---
REPORT GIVEN TO CAL CHAMBERS.
--- NOTE | 2018-08-14 07:03 | NUR ---
HAND-OFF REPORT RECIEVED FROM REYES EPPS. PT OBSERVED LYING IN BED, SEMI-SIMPSON'S. RESPIRATIONS EVEN AND UNLABORED. NO SIGNS OF DISTRESS. PT CONTINUES TO C/O ABD PAIN. CALL LIGHT IN REACH.
--- NOTE | 2018-08-14 09:46 | NUR ---
PT LYING IN BED, RESPIRATIONS EVEN AND UNLABORED. NO SIGNS OF DISTRESS. IV INFUSING ORDERED WITH NO SIGNS OF INFILTRATION. CALL LIGHT IN REACH. PT AWARE OF NPO STATUS. PT AWARE HE IS BEING ADMITTED TO [facility], AWAITING BED ASSIGNEMENT. WILL CONTINUE TO MONITOR.
--- NOTE | 2018-08-14 10:09 | NUR ---
ATTEMPTED TO OBTAIN STOOL SAMPLE FOR ORDERED OCCULT BLOOD STOOL. UNABLE TO OBTAIN SAMPLE MANUALLY. PT INFORMED SAMPLE WAS NEEDED AND THAT IF HE HAD THE URGE TO HAVE BM TO NOTIFY STAFF. PT VOICED UNDERSTANDING.
[2018-08-14 10:46] VITALS: BP 131/76; BMI 33.6
[2018-08-14] MEDS ORDERED: HYDROCODON-ACE1 EA10 PO (10:58)
[2018-08-14] MEDS ORDERED: COZAAR50 MG PO (10:58)
--- NOTE | 2018-08-14 11:16 | NUR ---
PT ARRIVED A&O FROM ER A NEW ADMIT. ADMISSION WORKUP COMPLETED. PT IS IN PAIN BUT WAS PROVIDED WITH PRN MORPHINE AND STATES IT EASED UP THE PAIN SOME. PT IS NPO R/T PANCREATITIS AND VERBALIZED UNDERSTANDING. PT DENIES ANY CURRENT NEEDS. CL IN REACH, BED IN LOWEST, SIDE RAILS X2. WILL CTM.
[2018-08-14 13:01] VITALS: BP 124/72
--- NOTE | 2018-08-14 13:47 | NUR ---
PT STILL IN A LOT OF PAIN AND STATES MORPHINE HELPED FOR A LITTLE BIT BUT IS NOW WORN OFF. DISCUSSED WITH PRIMARY AND GOT A NEW MEDICATION ORDERED. DEMEROL AND EXPLAINED TO PT REASONING AND DRUG TEACHING. PT IS GOING TO SEE IF IT HELPS. NO FURTHER NEEDS AT THIS TIME. WILL CTM.
[2018-08-14 14:13] LABS: CHOL - HDL RATIO 4.3 ratio (2.3-4.9); LDL-HDL RATIO 1.9 ratio (1.5-3.5)
--- NOTE | 2018-08-14 16:18 | NUR ---
PT C/O BEING NAUSEATED R/T A HEADACHE. PROVIDED PT WITH PRN ZOFRAN AND WILL CALL TO INQUIRE ABOUT SOMETHING FOR A HEADACHE EVEN THOUGH HE IS NPO. PT VOICED THANKS AND WANTS TO REST QUIETLY IN THE DARK. CL IN REACH. NO CURRENT NEEDS. WILL CTM.
--- NOTE | 2018-08-14 18:21 | NUR ---
PT VOICES RELIEF OF MIGRAINE AFTER TAKING HIS FIORICET. PTS ABDOMINAL PAIN CREEPING BACK PROVIDED HIM WITH PRN PAIN MEDICATION AND WILL TRY TO STAY AHEAD OF IT. PT VOICED THANKS. PT DID NOT HAVE BM TODAY FOR COLLECTION. WILL PASS ON IN REPORT THAT WE STILL NEED IT. PT DENIES ANY FURTHER NEEDS AT THIS TIME. CL IN REACH, BED IN LOWEST, SIDE RAILS X2. WILL CTM.
[2018-08-14 20:30] VITALS: BP 126/70
--- NOTE | 2018-08-14 21:43 | NUR ---
PT RESTING QUIETLY IN BED AND DENIES ANY CURRENT NAUSEA OR [place]LAND. PT DOES C/O ABDOMINAL PAIN STILL BUT STATES THE PRN PAIN MEDICATION IS HELPING. CL IN REACH, BED IN LOWEST, SIDE RAILS X2. WILL CTM.
--- NOTE | 2018-08-14 22:20 | NUR ---
REPORT RECIEVED AND ROUNDING COMPLETE. PT LAYING IN BED COMPLAINING OF ABDOMEN PAIN AND A HEADACHE. PT HAS A LEFT HAND PIV WITH PROTONIX RUNNING AT 10 AND A RIGHT HAND PIV WITH D5 LR RUNNING AT 100. ASSESMENT COMPLETE, PT STATES NO N/V AT THIS TIME. WILL GIVE OREDERED PAIN MEDICATIONS AND CPOC. CALL LIGHT WITHIN REACH AND BED IN LOWEST POSITION. BED RAILS X2. CTM.
[2018-08-15 00:32] VITALS: BP 113/71
[2018-08-15 04:39] VITALS: BP 112/74
[2018-08-15 05:57] LABS: BASOPHILS 0.2 % (0-2); HEMATOCRIT 42.6 % (42.0-54.0); HEMOGLOBIN 14.6 g/dL (13.5-17.5); IMMATURE GRANULOCYTES 0.2 % (0-5); LYMPHOCYTES 26.9 % (15-50); MCH 31.5 pg (26.0-34.0); MCHC 34.3 g/dL (31.0-37.0); MCV 91.8 fL (80.0-100.0); MEAN PLATELET VOLUME 10.5 fL (7.4-10.4); MONOCYTES 9.1 % (2-11); NEUTROPHILS 61.6 % (40-80); PLATELET COUNT 209 10x3/uL (130-400); RBC 4.64 10x6/uL (4.20-6.10); RDW 13.5 % (11.5-14.5)
[2018-08-15 06:14] LABS: ALKALINE PHOSPHATASE 112 U/L (46-116); ALT (SGPT) 34 U/L (10-68); AMYLASE - SERUM 37 U/L (25-115); BILIRUBIN - TOTAL 0.35 mg/dL (0.2-1.3); CALC OSMOLALITY 280 mosm/kg (275-300); CALCIUM 8.6 mg/dL (8.5-10.1); CARBON DIOXIDE 30.6 mmol/L (21.0-32.0); CHLORIDE - SERUM 105 mmol/L (98-107); LIPASE 112 U/L (73-393); MAGNESIUM - SERUM 1.7 mg/dL (1.8-2.4); POTASSIUM - SERUM 3.9 mmol/L (3.5-5.1); PROTEIN - SERUM 6.7 g/dL (6.4-8.2); SODIUM 141 mmol/L (136-145); UREA NITROGEN 9 mg/dL (7-18); eGFR NON AFRICAN AMERICAN 81 mL/min (90-120)
[2018-08-15 06:15] LABS: GLUCOSE 111 mg/dL (74-106)
[2018-08-15 06:19] LABS: WBC 9.1 10x3/uL (4.8-10.8)
--- NOTE | 2018-08-15 07:45 | NUR ---
AM ROUNDS COMPLETED. SHIFT ASSESSMENT COMPLETE. INTRODUCED MYSELF TO PT PRIMARY RN FOR TODAYS SHIFT. PT IS A&O SITTING UP IN BEDSIDE CHAIR. PT STATES HE HAD A GOOD NIGHT AND IS FEELING BETTER OVERALL. PT WAITING TO HEAR THE PLAN FOR TODAY. WILL REVIEW CHART, LABS AND ORDERS AND BEGIN TODAYS CARE. CL IN REACH. NO CURRENT NEEDS. WILL CPOC.
[2018-08-15 09:37] VITALS: BP 126/75
[2018-08-15 11:53] VITALS: Ht 172.7 cm; Wt 104.5 kg
[2018-08-15 12:27] VITALS: BP 144/90
--- NOTE | 2018-08-15 15:49 | NUR ---
PT WANTING TO GET INTO THE SHOWER. DISCONNECTED PT FROM IV FLUIDS AND WRAPPED HIS PIV. PROVIDED PT WITH SHOWER SUPPLIES AND HE IS UP AD VELIA WITH STEADY GAIT AND DENIED NEEDING ANY ASSISTANCE TO SHOWER. WILL RECONNECT WHEN HE IS DONE. STILL NO STOOL SPECIMEN FOR COLLECTION. WILL CTM.
--- NOTE | 2018-08-15 16:45 | NUR ---
PT COMPLETED WITH SHOWER. RECONNECTED TO PROTONIX DRIP AND FLUIDS ORDERED. PT STATES HE IS FEELING MUCH BETTER OVERALL AND HOPING TO DISCHARGE SOON. PT IS TOLERATING CLEAR LIQUID DIET AND WAITING TO SEE GI ABOUT FURTHER ADVANCING. PT STILL DENIES ANY FURTHER ABDOMINAL PAIN OR ISSUES AT THIS TIME. CL IN REACH, BED IN LOWEST, SIDE RAILS X2. WILL CTM.
[2018-08-15 18:39] VITALS: BP 143/94
--- NOTE | 2018-08-15 19:33 | NUR ---
BEDSIDE SHIFT REPORT GIVEN. PT SITTING UP IN BEDSIDE CHAIR RESTING QUIETLY. PT DENIES ANY CURRENT NEEDS.
--- NOTE | 2018-08-15 19:35 | NUR ---
Received patient resting quietly in bed, IV fluids infusing (see orders) with no difficulty in left hand PIV. Alert and oriented x 4, no needs or concerns at this time.
[2018-08-15 20:00] VITALS: BP 131/90
--- NOTE | 2018-08-15 20:07 | NUR ---
Given Demerol for complaints of abdominal pain rated as 5/10. Does not want pain to get too severe.
[2018-08-16] VITALS: BP 137/71
--- NOTE | 2018-08-16 00:37 | NUR ---
Resting quietly in bed, no signs of distress, IV infusing.
[2018-08-16 04:00] VITALS: BP 109/67
[2018-08-16 04:49] LABS: BASOPHILS 0.2 % (0-2); EOSINOPHILS 2.8 % (0-7); HEMATOCRIT 43.4 % (42.0-54.0); HEMOGLOBIN 14.9 g/dL (13.5-17.5); IMMATURE GRANULOCYTES 0.1 % (0-5); MCH 31.1 pg (26.0-34.0); MCHC 34.3 g/dL (31.0-37.0); MCV 90.6 fL (80.0-100.0); MEAN PLATELET VOLUME 10.8 fL (7.4-10.4); MONOCYTES 10.1 % (2-11); NEUTROPHILS 55.8 % (40-80); PLATELET COUNT 210 10x3/uL (130-400); RBC 4.79 10x6/uL (4.20-6.10); RDW 13.1 % (11.5-14.5); WBC 8.3 10x3/uL (4.8-10.8)
[2018-08-16 05:14] LABS: ALBUMIN 2.9 g/dL (3.4-5.0); ALKALINE PHOSPHATASE 102 U/L (46-116); ALT (SGPT) 22 U/L (10-68); AMYLASE - SERUM 34 U/L (25-115); BILIRUBIN - TOTAL 0.29 mg/dL (0.2-1.3); CALC OSMOLALITY 278 mosm/kg (275-300); CALCIUM 8.6 mg/dL (8.5-10.1); CARBON DIOXIDE 27.9 mmol/L (21.0-32.0); CHLORIDE - SERUM 105 mmol/L (98-107); CREATININE - SERUM 0.9 mg/dL (0.6-1.3); GLUCOSE 111 mg/dL (74-106); LIPASE 97 U/L (73-393); MAGNESIUM - SERUM 1.8 mg/dL (1.8-2.4); POTASSIUM - SERUM 3.8 mmol/L (3.5-5.1); PROTEIN - SERUM 6.6 g/dL (6.4-8.2); SODIUM 140 mmol/L (136-145); UREA NITROGEN 10 mg/dL (7-18); eGFR NON AFRICAN AMERICAN > 90 mL/min (90-120)
--- NOTE | 2018-08-16 07:45 | NUR ---
A/A/OX4. UP AD VELIA IN ROOM AND HALLWAYS. DENIES ANY PAIN OR DISCOMFORT AND VOICES NO REQUESTS. SITTING UP IN BEDSIDE CHAIR AT PRESENT TIME. BED IN LOW POSITION AND LOCKED, SIDERAILS UP X 2 AND CALL LIGHT IN REACH. WILL CONTINUE POC.
[2018-08-16 08:12] VITALS: BP 129/78
--- NOTE | 2018-08-16 10:05 | NUR ---
I have reviewed this patient and I concur with the Shift Assessment completed by the Licensed Practical Nurse today this shift.
[2018-08-16 12:31] VITALS: BP 153/87
[2018-08-16] MEDS ORDERED: CREON DR 6,0001 EACH PO (12:55)
--- NOTE | 2018-08-16 16:18 | NUR ---
DISCHARGE INSTRUCTION REVIEWED WITH PT AND VERBALIZES UNDERSTANDING WITH NO QUESTIONS. SL REMOVED WITH TIP INTACT. LEFT FLOOR VIA W/C WITH ALL PERSONAL BELONGINGS AND LEFT FACILITY PER PRIVATE VEHICLE DRIVING HIMSELF.
--- NOTE | 2018-08-19 08:47 | MORECARE ---
CASE MANAGEMENT DISCHARGE SUMMARY PATIENT: WADE DAVIDSON UNIT: [id number] ADM DATE: 08/14/18 AGE: 57 : 58 SEX: M ROOM/BED: D.2102 AUTHOR: JAVAN FONTANA PHYSICIAN: REFERRING PHYSICIAN: HERNANDEZ HARRINGTON DO DATE OF SERVICE: 08/19/18 Discharge Plan Patient Name: WADE DAVIDSON Facility: [facility]:[place] : 1960 Planned Disposition: Home Anticipated Discharge Date: 08/16/18 Discharge Date: 08/16/2018 Expected LOS: 2 Initial Reviewer: [email or web address] Initial Review Date: 08/19/2018 Generated: 08/19/18 9:47 am Patient Name: WADE DAVIDSON Page [id number] at 0847 All edits/amendments must be made on the electronic document DICTATION DATE: 08/19/18846 CONTINUITY PERSON: ROYA 08/19/18846 RPT#: [id number] DC DATE:08/16/18 STATUS: DIS IN [facility] [address] [place] [address] END OF REPORT
== END 2018-08-16 16:21 | disposition home or self-care (01) ==
LOC: D.ER 05:15 → D.EDHOLD 08:54 → D.M2 08:54 → OBSVTIME 08:54 → D.M2 10:03
PROVIDERS: Family Medicine; ADMIT Family Medicine; ATTEND Family Medicine
DX: K85.90 Acute pancreatitis without necrosis or infection, unspecified (principal); I10 Essential (primary) hypertension; K44.9 Diaphragmatic hernia without obstruction or gangrene; K21.9 Gastro-esophageal reflux disease without esophagitis; Z72.0 Tobacco use; E78.1 Pure hyperglyceridemia